=== PATIENT | female | born 1945 | race Caucasian/White ===

== ENCOUNTER 2017-02-15 19:09 | Inpatient (IN) | payer MEDICARE, OTHER ==
[~2017-02-15] VITALS: Ht 160 cm; Wt 81.6 kg
[2017-02-15 19:12] VITALS: BP 152/87
--- NOTE | 2017-02-15 21:05 | NUR ---
BIB WHEELCHAIR TO ER OF1
--- NOTE | 2017-02-15 21:50 | NUR ---
BIB WHEELCHAIR TO ER BED [address] SCAN
--- NOTE | 2017-02-15 21:55 | NUR ---
Patient being evaluated by physician at bedside.
--- NOTE | 2017-02-15 21:55 | NUR ---
71Y F BIB FAMILY FOR LT. EYEBROWN LACERATION X1 HR. S/P FALL, LT. FACE SIDE HIT THE FLOOR. HX. DM . PT STATED PAIN IS LOCALIZED AT LEFT LEG. PT DENIES N/V/D; SKIN IS PINK/WARM/DRY; AAOX4 ; LUNGS CLEAR BL; HR EVEN AND REGULAR; PT DENIES ANY FEVER, CP, SOB, OR COUGH AT THIS TIME; PATIENT STATES PAIN OF 10/10 AT THIS TIME; VSS; PATIENT POSITIONED FOR COMFORT; HOB ELEVATED; BEDRAILS UP X2; BED DOWN. ER MD MADE AWARE OF PT STATUS.
[2017-02-15 22:55] LABS: BASOPHILS % (AUTO) 0.4 % (0.0-2.0); EOSINOPHILS # (AUTO) 0.1 K/uL (0-0.4); EOSINOPHILS % (AUTO) 1.3 % (0.0-4.0); HEMATOCRIT 28.4 % (36-48); HEMOGLOBIN 9.3 g/dL (12.0-16.0); LYMPHOCYTES # (AUTO) 0.7 K/uL (2.5-16.5); LYMPHOCYTES % (AUTO) 7.2 % (20.5-51.1); MEAN CORPUSCULAR HEMOGLOBIN 30 pg (27-31); MEAN CORPUSCULAR HGB CONC 33 g/dL (33-37); MEAN CORPUSCULAR VOLUME 92 fL (80-94); MONOCYTES # (AUTO) 0.5 K/uL (0.8-1.0); MONOCYTES % (AUTO) 4.7 % (1.7-9.3); NEUTROPHILS # (AUTO) 8.4 K/uL (1.8-7.7); PLATELET COUNT (AUTO) 147 K/uL (140-450); RED BLOOD CELL COUNT(AUTO) 3.09 MIL/uL (4.20-5.40); RED CELL DISTRIBUTION WIDTH 12.9 % (11.6-13.7); WHITE BLOOD COUNT (AUTO) 9.7 K/uL (4.8-10.8)
[2017-02-15 23:09] LABS: ANION GAP 13.7 (8-16); CARBON DIOXIDE 22.5 mmol/L (21-32); CHLORIDE 108 mmol/L (98-107); CREATININE 1.2 mg/dL (0.6-1.3); GLUCOSE 272 mg/dL (74-106); POTASSIUM 4.2 mmol/L (3.5-5.1); SODIUM SERUM 140 mmol/L (136-145); UREA NITROGEN, BLOOD 44 mg/dL (7-18)
[2017-02-15 23:16] LABS: ALANINE AMINOTRANSFERASE 27 U/L (14-59); ALBUMIN 2.7 g/dL (3.4-5.0); ALKALINE PHOSPHATASE 116 U/L (46-116); ASPARTATE AMINOTRANSFERASE 25 U/L (15-37); TOTAL BILIRUBIN 0.5 mg/dL (0.0-1.0); TOTAL PROTEIN, SERUM 6.9 g/dL (6.4-8.2)
[2017-02-15] MEDS ORDERED: HYDROcodone/APAP 5/325 MG 1 TAB TAB PO ONE (23:20)
[2017-02-15 23:21] LABS: NEUTROPHILS % (AUTO) 86.4 % (42.2-75.2)
--- NOTE | 2017-02-16 00:27 | NUR ---
Patient will be admitted to care of DR TEJEDA. Admited to MS 108B. Will go to room MS 108B. Belongings list completed. Report to NATE.
[2017-02-16] MEDS ORDERED: ACETAMINOPHEN EXTRA STRENGTH 500 MG TAB PO PRN (00:35)
[2017-02-16] MEDS ORDERED: oxyCODONE/APAP 5/325 MG 1 TAB TAB PO PRN (00:35)
[2017-02-16] MEDS ORDERED: ONDANSETRON 4 MG/2 ML VIAL IVP PRN (00:40)
[2017-02-16] MEDS ORDERED: DEXTROSE 50% 50 ML SYR IVP PRN (00:40)
[2017-02-16 01:05] VITALS: BP 147/71
--- NOTE | 2017-02-16 02:07 | NUR ---
ADMITTED A 71 Y/O FEMALE FROM ER, VIA GURNEY, ACCOMPANIED BY 2 STAFF AND THE PATIENT'S SON. PT ADMITTED TO MED/SURG FOR LT FEMUR FRACTURE FROM S/P FALL. PT SPEAKS [place], ALERT BUT IS FORGETFUL. IV ACCESS TO LT HAND, GAUGE 20, INTACT AND PATENT WITH NO S/S OF INFILTRATION. SKIN ASSESSMENT DONE. LT FACIAL BRUISING, LT EYEBRON SUPERFICIAL LACERATION AND NOSE BRIDGE ABRASION NOTED. PER SON, THE ABRASION TO THE NOSEBRIDGE WAS FROM PT'S WEARING EYEGLASSES. NO PRESSURE ULCER NOTED AT THIS TIME. HANDLED GENTLY DURING CARE. PT DENIES PAIN AT THIS TIME. DISCUSSED PLAN OF CARE. PT AND SON VERBALIZED UNDERSTANDING. ALL BELONGINGS CHECKED. SON WILL BRING THEM HOME. ORIENTED PT TO CALL LIGHT, TV, LIGHTS, BATHROOM. FALL PRECAUTION AND BED ALARM IN PLACE. CALL LIGHT PLACED WITHIN EASY REACH. WILL CONTINUE TO MONITOR.
--- NOTE | 2017-02-16 02:10 | NUR ---
NOTED LT KNEE AND LT THIGH TENDERNESS AND EDEMA, NO BRUISING AT THIS TIME. HANDLED GENTLY DURING CARE. EDUCATED PT TO MINIMIZE MOBILIZATION OF AFFECTED LEG. PT VERBALIZED UNDERSTANDING.
--- NOTE | 2017-02-16 03:19 | NUR ---
PT STILL AWAKE AT THIS TIME, DENIES PAIN. LYING COMFORTABLY IN BED. LIANA (SON) VISITING. ALL QUESTIONS ANSWERED. UPDATED PATIENT'S PLAN OF CARE. HE VERBALIZED UNDERSTANDING AND APPRECIATION. WILL CONTINUE TO MONITOR.
--- NOTE | 2017-02-16 04:16 | NUR ---
PT SLEEPING AT THIS TIME. NO S/S OF RESPIRATORY DISTRESS. NO FACIAL GRIMACING OR MOANING INDICATING PAIN AT THIS TIME. WILL CONTINUE TO MONITOR. FALL PRECAUTION IN PLACE.
[2017-02-16] MEDS: INSULIN LISPRO SLIDING SCALE 100 UNITS/ML VIAL SUBQ PRN ×4 (06:38→21:02)
[2017-02-16] MEDS: BLOOD GLUCOSE MONITORING 1 DEV DEV FS SCH ×4 (06:39→20:59)
--- NOTE | 2017-02-16 07:16 | NUR ---
PT AAOX4, VERBALLY RESPONSIVE. DENIES PAIN. NO S/S OF RESPIRATORY DISTRESS AT THIS TIME. PT IN STABLE CONDITION. ENDORSED TO NEXT SHIFT FOR CONTINUITY OF CARE.
--- NOTE | 2017-02-16 07:17 | NUR ---
RECEIVED REPORT AT BEDSIDE FOR CONTINUITY OF CARE. PT IS AWAKE AND ALERT. INTRODUCED MYSELF AND UPDATED THE BOARD. PT IS NICARAGUAN SPEAKING, VERY LITTLE BURMESE. PT HAS FACIAL ABRASIONS AND BRUISES FROM S/P FALL. PT HAS A L FRACTURED FEMUR. DENIES PAIN. PT HAS EDEMA ON L LEG AND KNEE, OTHER RODRIGUEZ SKIN IS INTACT. PLAN FOR TODAY: CONSULT FROM SURGEON, POSSIBLE SURGERY. WILL CONTINUE TO MONITOR PT.
--- NOTE | 2017-02-16 07:48 | NUR ---
PT V/S WITHIN NORMAL RANGE. EATING BREAKFAST AT THIS TIME. NO COMPLAINTS. WILL CONTINUE TO MONITOR PT.
[2017-02-16 08:00] VITALS: BP 132/66
[2017-02-16] MEDS ORDERED: ENOXAPARIN 40 MG/0.4 ML SYR SUBQ SCH (09:00)
--- NOTE | 2017-02-16 10:04 | NUR ---
SPOKE WITH DR. QUIROGA REGARDING THE CARDIOLOGY PRE-OP CONSULT. STATED HE WILL SEE PT BEFORE SX. NEW ORDER GIVEN (TROPONIN X1).
[2017-02-16 10:27] LABS: INR 1.1 (0.8-1.2); PARTIAL THROMBOPLASTIN TIME 27.6 secs (22-35.6); PROTHROMBIN TIME 10.8 secs (10.8-13.4)
--- NOTE | 2017-02-16 11:05 | NUR ---
PT IS SLEEPING. NO SIGNS OF DISTRESS. WILL CONTINUE TO MONITOR PT.
--- NOTE | 2017-02-16 11:14 | NUR ---
DR. QUIROGA, COACH PROFESSIONAL ATHLETES, CAME TO CONSULT ON PT. Addendum: 02/16/17 at 1117 by Ysabel Lam RN ONCE PT IS CLEARED FOR SURGERY, SHE WILL HAVE IT ON MON AT 1000.
--- NOTE | 2017-02-16 11:20 | NUR ---
PATIENT HAS BEEN SCREENED AND CATEGORIZED MODERATE NUTRITION RISK. PATIENT WILL BE SEEN WITHIN 3-5 DAYS OF ADMISSION. 02/19/17 - 02/21/17 ANCELMO TOSCANO MBA, RD
--- NOTE | 2017-02-16 14:52 | NUR ---
P/T HERE FOR ORTEGA'S TRACTION AND THE TRAPEZE. STUDENT NURSE HERE TO ASSIST AND WATCH.
--- NOTE | 2017-02-16 15:00 | NUR ---
PT NOTES PT order noted for chapa's traction 10# LLE d/t L hip fx, and trapeze set up. Chapa's traction set up completed and tolerated, noted LLE slightly ER'd and flexed, educated nursing to f/u with traction for skin check and tolerance, patient with minimal c/o pain, unable to rate, no significant facial grimacing noted. Trapeze set up, double safety check for proper set up. Instructed patient/nursing on use with good return understanding. Patient scheduled for possible sx 02/18. [phone]
[2017-02-16 15:53] VITALS: BP 129/65
--- NOTE | 2017-02-16 17:33 | NUR ---
PT RESTING COMFORTABLY. SON AT BEDSIDE. PT IS TOLERATING THE TRACTION WELL. NO COMPLAINTS. WILL CONTINUE TO MONITOR PT.
--- NOTE | 2017-02-16 18:45 | NUR ---
PT DIDN'T URINATE ALL DAY. TRIED USING BEDPAN 2X BUT NO URINATION. SHE HAS TO GO BUT WHEN SHE SITS ON THE BEDPAN, NOTHING COMES OUT. PLANNING TO DO A BLADDER SCAN TO SEE IF SHE IS RETAINING URINE. WAITING FOR PT TO FINISH DINNER. PT SON AT BEDSIDE. IF PT IS RETAINING URINE, NEED TO CONTACT DR. ALEXANDER AND WILL NEED AN ORDER FOR MIMS CATH.
--- NOTE | 2017-02-16 19:23 | NUR ---
ENDORSED PT TO THE OPTICIAN MANAGER NURSE AT BEDSIDE FOR CONTINUITY OF CARE. PT IS STILL EATING DINNER. PT IN STABLE CONDITION.
--- NOTE | 2017-02-16 19:30 | NUR ---
PATIENT IS CURRENTLY AWAKE ALERT ORIENTED RESTING IN BED SPEAKS ALBANIAN.PATIENT HAS BUCKS TRACTION TO LT LEG.PATIENT DENIES PAIN AT THIS TIME. ENDORSED BY RN IVETTE ENDORSED THAT PATIENT HASN'T VOIDED YET PATIENT WAS OFFERED THE BED GOLDEN EARLIER BUT PATIENT DIDN'T VOID.WILL DO BLADDER SCAN TO CHECK FOR URINE RETENTION.PATIENT DENIES PAIN AT THIS TIME.CALL LIGHT WITHIN REACH FALL AND SAFETY PRECAUTIONS IMPLEMENTED.
--- NOTE | 2017-02-16 19:35 | NUR ---
Patient's Plan of Care was discussed and reviewed with AUDITOR IN CHARGE: MADISON MOSQUEDA.
[2017-02-16 20:00] VITALS: BP 149/67
--- NOTE | 2017-02-16 20:02 | NUR ---
PATIENT BLADDER WAS SCANNED WITH BLADDER SCANNER AND APPROX 179ML SHOWING THAT SHE IS RETAINING SOME URINE I ATTEMPTED SEVERAL TIMES TO SCAN HER BLADDER, BUT SHOWS DIFFERENT AMOUNTS OF RETAINED URINE IN HER BLADDER. MD NIKHIL MARY WAS CALLED AND MD JENSEN IS COMPUTING SERVICES DIRECTOR SO WILL WAIT FOR MD TO CALL BACK TO INFORM HIM.
--- NOTE | 2017-02-16 20:18 | NUR ---
MD DIANA CALLED BACK AND INFORMED HIM THAT PATIENT HASN'T VOIDED AND HE GAVE NEW ORDERS. SAID TO ORDER BMP STAT AND AND TO INSERT MIMS CATHETER. PATIENT AND FAMILY WILL BE INFORMED.I CALLED LAB AND INFORMED NAHUM THAT PATIENT NEEDS STAT LAB DRAW.
[2017-02-16 21:01] LABS: ANION GAP 12.2 (8-16); CALCIUM 7.1 mg/dL (8.5-10.1); CARBON DIOXIDE 22.3 mmol/L (21-32); CHLORIDE 103 mmol/L (98-107); CREATININE 1.8 mg/dL (0.6-1.3); GLUCOSE 247 mg/dL (74-106); POTASSIUM 4.5 mmol/L (3.5-5.1); SODIUM SERUM 133 mmol/L (136-145); UREA NITROGEN, BLOOD 56 mg/dL (7-18)
[2017-02-16] MEDS: MORPHINE SULFATE 2 MG/ML SYR IVP PRN (23:36)
[2017-02-17] VITALS: BP 127/65
--- NOTE | 2017-02-17 00:10 | NUR ---
PATIENT IS CURRENTLY SLEEPING WELL IN BED AT THIS TIME. NEEDS MET CONTINUES TO BE MONITORED.CALL LIGHT WITHIN REACH.
--- NOTE | 2017-02-17 03:10 | NUR ---
PATIENT COMFORTABLE RESTING IN BED NO COMPLAINS OF PAIN OR DISCOMFORT NOTED.WILL CONTINUE TO MONITOR.
[2017-02-17 05:08] VITALS: BP 119/64
[2017-02-17 06:14] LABS: BASOPHILS % (AUTO) 0.4 % (0.0-2.0); EOSINOPHILS # (AUTO) 0.3 K/uL (0-0.4); EOSINOPHILS % (AUTO) 3.4 % (0.0-4.0); HEMATOCRIT 22.1 % (36-48); HEMOGLOBIN 7.4 g/dL (12.0-16.0); LYMPHOCYTES # (AUTO) 0.8 K/uL (2.5-16.5); LYMPHOCYTES % (AUTO) 9.8 % (20.5-51.1); MEAN CORPUSCULAR HEMOGLOBIN 31 pg (27-31); MEAN CORPUSCULAR HGB CONC 34 g/dL (33-37); MEAN CORPUSCULAR VOLUME 91 fL (80-94); MONOCYTES # (AUTO) 0.5 K/uL (0.8-1.0); MONOCYTES % (AUTO) 6.1 % (1.7-9.3); NEUTROPHILS # (AUTO) 6.5 K/uL (1.8-7.7); NEUTROPHILS % (AUTO) 80.3 % (42.2-75.2); PLATELET COUNT (AUTO) 111 K/uL (140-450); RED BLOOD CELL COUNT(AUTO) 2.43 MIL/uL (4.20-5.40); WHITE BLOOD COUNT (AUTO) 8.1 K/uL (4.8-10.8)
--- NOTE | 2017-02-17 06:30 | NUR ---
PATIENT KEPT CLEAN AND DRY MIMS CATHETER TO GRAVITY.NEEDS MET.NO PAIN OR DISCOMFORT NOTED.
[2017-02-17 07:15] LABS: ANION GAP 14.8 (8-16); CALCIUM 7.5 mg/dL (8.5-10.1); CARBON DIOXIDE 21.5 mmol/L (21-32); CHLORIDE 102 mmol/L (98-107); CREATININE 1.5 mg/dL (0.6-1.3); GLUCOSE 186 mg/dL (74-106); POTASSIUM 4.3 mmol/L (3.5-5.1); SODIUM SERUM 134 mmol/L (136-145); UREA NITROGEN, BLOOD 54 mg/dL (7-18)
--- NOTE | 2017-02-17 07:17 | NUR ---
REPORT ENDORSE TO GIOVANNI GRAY SHE WILL RESUME CARE OF THE PATIENT.
--- NOTE | 2017-02-17 07:18 | NUR ---
RECEIVED REPORT FROM THE CREDIT RISK ANALYTICS MANAGER NURSE AT BEDSIDE FOR CONTINUITY OF CARE. PT IS AWAKE AND ALERT. INTRODUCED MYSELF AND UPDATED THE BOARD. FAMILY AT BEDSIDE. NOTED THE IV ON THE L HAND 20G SL. V/S WITHIN NORMAL RANGE. DENIES PAIN. SKIN IS INTACT. BRUISING ON L SIDE OF FACE. EDEMA ON L KNEE AND THIGH. MIMS CATH IN PLACE. ORTEGA TRACTION WITH 10LB OF WEIGHT FREE HANGING. PT TOLERATING WELL. PLAN: CONTINUE TO KEEP PT COMFORTABLE. DR. AWAN TO VISIT AND GET CONSENT FOR SURGERY ON Saturday.
[2017-02-17] MEDS: BLOOD GLUCOSE MONITORING 1 DEV DEV FS SCH ×4 (07:30→22:38)
--- NOTE | 2017-02-17 08:11 | NUR ---
PT AFTER BEING REPOSITIONED, O2 SAT DROPPED TO 86%. APPLIED NC O2 AT 4L. NOW SETTING AT 97% WILL BRING DOWN TO 2L. PT TOLERATED WELL. CHECK GLUCOSE LEVEL SINCE IT WAS MISSED AT 0730- 177. WILL HOLD INSULIN. PT REFUSING BREAKFAST TRAY.
[2017-02-17] MEDS: METOPROLOL 25 MG TAB PO SCH (08:33)
--- NOTE | 2017-02-17 11:30 | NUR ---
PT WANTED TO USE THE BEDPAN. FORGOT SHE HAD THE MIMS CATH. REMINDED PT. ASKED IT SHE NEEDED TO HAVE A BM. PT STATED NO. WILL CONTINUE TO MONITOR PT.
[2017-02-17] MEDS: INSULIN LISPRO SLIDING SCALE 100 UNITS/ML VIAL SUBQ PRN ×3 (12:13→22:43)
--- NOTE | 2017-02-17 13:50 | NUR ---
PT NEEDED TO BE PULLED UP IN BED. SURVEILLANCE INVESTIGATOR AND I HELPED CLEAN AND REPOSITION HER. PT TOLERATED WELL. WILL CONTINUE TO MONITOR PT.
--- NOTE | 2017-02-17 15:43 | NUR ---
SLEEPING SOUNDLY. SON AT BEDSIDE. NO SIGNS OF DISTRESS. WILL CONTINUE TO MONITOR PT.
[2017-02-17 16:00] VITALS: BP 159/63
--- NOTE | 2017-02-17 18:30 | NUR ---
PT EATING DINNER. SONS AT BEDSIDE. NO SIGNS OF DISTRESS. NO COMPLAINTS AT THIS TIME. WILL CONTINUE TO MONITOR PT.
--- NOTE | 2017-02-17 19:15 | NUR ---
ENDORSED PT TO THE DIRECTOR OF SPORTS PERFORMANCE NURSE AT BEDSIDE FOR CONTINUITY OF CARE. PT IS IN STABLE CONDITION. PT IS SITTING ON THE BEDPAN. I EXPLAINED TO HER THAT SHE HAS A MIMS CATH BUT SHE INSISTS.
--- NOTE | 2017-02-17 19:20 | NUR ---
PATIENT IS CURRENTLY AWAKE ALERT ORIENTED SETSWANA SPEAKING SHE IS LAYING IN BED DENIES PAIN AT THIS TIME. CONTINUES TO HAVE BUCKS TRACTION TO LT LEG.MIMS CATHETER TO GRAVITY DRAINING YELLOW COLOR URINE.FAMILY CURRENTLY AT BEDSIDE WITH THE PATIENT.
[2017-02-17 20:00] VITALS: BP 123/62
--- NOTE | 2017-02-17 20:08 | NUR ---
Patient's Plan of Care was discussed and reviewed with WHARF LABOURER: KIT.
--- NOTE | 2017-02-17 22:35 | NUR ---
PATIENT IS CURRENTLY RESTING IN BED WAS PULLED UP IN BED WATER AND SNACK OFFERED TO THE PATIENT.PATIENT DOING WELL.NEEDS MET CALL LIGHT WITHIN REACH.
[2017-02-17] MEDS: MORPHINE SULFATE 2 MG/ML SYR IVP PRN (23:02)
--- NOTE | 2017-02-17 23:16 | NUR ---
PATIENT WAS CLEANED BY LUPILLO GALINDO AND LUPILLO ALBERT AND WHEN THEY LIFTED THE PATIENT ABDOMINAL FOLD SO THEY CAN CLEAN HER BETTER AND THEN LUPILLO ALBERT REPORTED THAT SHE NOTICED SOME REDNESS AND A LITTLE EXCORIATION.I WENT TO CHECK ON THE PATIENT AND PATIENT DOES HAVE UNDERNEATH HER ABDOMEN FOLD SOME EXCORIATION. I TOOK PICTURES BUT THE CAMERA ISN'T TAKING QUALITY PICTURES THEY CAME OUT ORANGE IN COLOR.BUT SHE HAS REDNESS UNDERNEATH THE ABD FOLD AND TO THE RT AND LT SIDE UNDERNEATH THE ABDOMEN FOLD THE AREA LOOKS RED AND LOOKS IRRITATED LIKE THERE WAS FRICTION WITH THE SKIN.SITE WAS CLEANED AND PATTED AND A PILLOW COVER PLACED UNDER THE ABDOMEN FOLD TO PREVENT FURTHER FRICTION FOR NOW.
--- NOTE | 2017-02-17 23:58 | NUR ---
ANESTHESIOLOGIST BRIGETTE HILLS CALLED AND WANTED INFORMATION ON THE PATIENT.HE WAS UPDATED WITH PATIENT'S CURRENT CONDITION AND IS ALSO AWARE OF THE PATIENTS LABS. GAVE TELEPHONE ORDERS WILL ORDER AND CARRY THEM OUT.
[2017-02-18] VITALS (7 sets, daily range): BP systolic 115–158; BP diastolic 52–79
--- NOTE | 2017-02-18 00:15 | NUR ---
PATIENT IS CURRENTLY RESTING IN BED AND CONTINUES TO BE PULLED UP IN BED.NEEDS CONTINUE TO BE MET FREQUENT VISUAL CHECKS WILL BE DONE.CALL LIGHT WITHIN REACH WILL CONTINUE TO MONITOR.
--- NOTE | 2017-02-18 03:05 | NUR ---
PATIENT WAS GIVEN THE BEDPAN WHILE MAKING ROUNDS PATIENT STATES,"I FEEL LIKE GOING POOP." I GAVE THE PATIENT A BEDPAN AND PATIENT TRIED TO USE IT BUT WAS UNABLE TO GO PUPU. NO PAIN OR DISCOMFORT NOTED NEEDS MET WILL CONTINUE TO MONITOR.CALL LIGHT WITHIN REACH.
--- NOTE | 2017-02-18 04:45 | NUR ---
PATIENT WAS CLEANED AND TURNED AND REPOSITIONED WITH THE ASSISTANCE OF LUPILLO ALBERT AND LUPILLO GALINDO.PATIENT COMFORTABLE.NO PAIN OR DISCOMFORT NOTED.PATIENT WENT BACK TO SLEEP.CALL LIGHT WITHIN REACH.
[2017-02-18 05:05] LABS: BASOPHILS % (AUTO) 0.5 % (0.0-2.0); EOSINOPHILS # (AUTO) 0.1 K/uL (0-0.4); EOSINOPHILS % (AUTO) 1.5 % (0.0-4.0); LYMPHOCYTES # (AUTO) 0.7 K/uL (2.5-16.5); LYMPHOCYTES % (AUTO) 10.7 % (20.5-51.1); MEAN CORPUSCULAR HEMOGLOBIN 30 pg (27-31); MEAN CORPUSCULAR HGB CONC 33 g/dL (33-37); MEAN CORPUSCULAR VOLUME 92 fL (80-94); MONOCYTES # (AUTO) 0.7 K/uL (0.8-1.0); MONOCYTES % (AUTO) 10.8 % (1.7-9.3); NEUTROPHILS # (AUTO) 4.7 K/uL (1.8-7.7); NEUTROPHILS % (AUTO) 76.5 % (42.2-75.2); PLATELET COUNT (AUTO) 107 K/uL (140-450); RED BLOOD CELL COUNT(AUTO) 2.07 MIL/uL (4.20-5.40); RED CELL DISTRIBUTION WIDTH 13.1 % (11.6-13.7); WHITE BLOOD COUNT (AUTO) 6.2 K/uL (4.8-10.8)
[2017-02-18 05:13] LABS: ANION GAP 9.8 (8-16); CALCIUM 7.4 mg/dL (8.5-10.1); CARBON DIOXIDE 24.2 mmol/L (21-32); CHLORIDE 105 mmol/L (98-107); CREATININE 0.9 mg/dL (0.6-1.3); GLUCOSE 167 mg/dL (74-106); SODIUM SERUM 135 mmol/L (136-145); UREA NITROGEN, BLOOD 41 mg/dL (7-18)
[2017-02-18 05:24] LABS: HEMOGLOBIN 6.2 g/dL (12.0-16.0)
--- NOTE | 2017-02-18 05:43 | NUR ---
MD CORONA WAS CALLED AND INFORMED OF PATIENT CURRENT CONDITION AND CRITICAL LAB VALUES MD AWARE. WILL CALL MD AWAN WELL.
--- NOTE | 2017-02-18 05:44 | NUR ---
I CALLED MD LV MARY AND WAS TRANSFERRED TO HIM RIGHT AWAY SO I SPOKE WITH HIM AND I INFORMED HIM OF PATIENT'S LABS HGB AND HCT BEING CRITICALLY LOW AND I ALSO ASKED HIM IF HE WOULD LIKE THE PATIENT TO BE ON IVF BECAUSE PATIENT IS NPO AND HAS NO CURRENT ORDER FOR FLUIDS. THEN I INFORMED HIM THAT PATIENT'S O2SAT WAS LOW 88% I ASKED HIM IF ITS OK FOR THE PATIENT TO GET SOME OXYGEN.MD GAVE ORDERS.WILL CARRY THEM OUT.
--- NOTE | 2017-02-18 06:06 | NUR ---
FAMILY LUIS MANUEL MG (SON) WAS CALLED AND INFORMED THAT PATIENT'S PROCEDURE WILL BE TODAY AROUND 10AM PER MD AWAN, I ALSO INFORMED SON THAT PATIENT WILL NEED A CONSENT FOR BLOOD TRANSFUSION AND I INFORMED SON THAT THE SURGERY IS CURRENTLY SCHEDULED FOR 10AM.MIKY ISSA SAID HE WILL COME THIS MORNING. MIKY ISSA GAVE TELEPHONE CONSENT FOR HIS MOTHER'S PROCEDURE OVER THE PHONE AND ALSO GAVE TELEPHONE CONSENT SO WE CAN TRANSFUSE TWO UNITS OF PRBC'S WITNESSED BY LIBRARY SERIALS ASSISTANT NURSE NACHO.
[2017-02-18] MEDS: NACL 0.45% 1,000 ML IV SCH ×2 (06:13→19:10)
[2017-02-18 06:23] LABS: BILIRUBIN,URINE NEGATIVE (NEGATIVE); BLOOD, URINE 1+ (NEGATIVE); COLOR,URINE YELLOW (YELLOW); LEUKOCYTE ESTERASE ,URINE 1+ (NEGATIVE); NITRITE, URINE POSITIVE (NEGATIVE); PH,URINE 5.5 (5.0-9.0); PROTEIN,URINE 2+ (NEGATIVE); UGLUCOSE NEGATIVE (NEGATIVE); UROBILINOGEN,URINE 0.2 EU/dL (0.2 - 1)
[2017-02-18] MEDS: BLOOD GLUCOSE MONITORING 1 DEV DEV FS SCH ×6 (06:27→21:05)
--- NOTE | 2017-02-18 06:47 | NUR ---
PATIENT CURRENTLY RESTING IN BED AT THIS TIME NEEDS MET.CONTINUES TO BE NPO,IVF INFUSING WELL WILL CONTINUE TO MONITOR.
[2017-02-18] MEDS: INSULIN LISPRO SLIDING SCALE 100 UNITS/ML VIAL SUBQ PRN ×3 (06:59→21:07)
--- NOTE | 2017-02-18 07:30 | NUR ---
PATIENT ENDORSED AT BEDSIDE TO GIOVANNI GEIGER ENDORSED TO FOLLOW UP WITH THE ECHO RESULTS AND TO UPDATE THE SURGICAL CHECKLIST.SHE WILL RESUME CARE OF THE PATIENT.
--- NOTE | 2017-02-18 07:31 | NUR ---
REPORT RECEIVED FROM PATIENT ADMITTING CLERK, CARE ASSUMED AT THIS TIME, PT SLEEPING QUIETLY, AROUSES EASILY BY VOICE, RESP EVEN UNLABORED, INITIAL ASSESSMENT DONE, PT DENIES PAIN OR DISCOMFORT, PLAN OF CARE DISCUSSED, SON AT BEDSIDE, BLOOD BANK GETTING PRBC READY, CROSSMATCH ORDERED PER BLOOD BANK, DENIES ANY IMMEDIATE NEEDS, CALL MORALES WITHIN REACH, WILL CONTINUE TO TO MONITOR.
[2017-02-18 08:07] LABS: APPEARANCE,URINE HAZY (CLEAR)
[2017-02-18 08:13] LABS: BACTERIA,URINE 1+ /HPF (None Seen)
[2017-02-18 08:15] LABS: SQUAMOUS EPITHELIAL CELL,UR 0-3 (FEW) /LPF (0-3 (FEW))
[2017-02-18] MEDS: METOPROLOL 25 MG TAB PO SCH (09:00)
--- NOTE | 2017-02-18 09:12 | NUR ---
PRBC BLOOD TRANSFUSION CONSENT TURNED IN TO BLOOD BANK, VERIFIED BY 2 NURSES WITH RN YASMIN, PRE TRANSFUSION VITALS STABLE PER DOCUMENTATION, TRANSFUSION STARTED AT THIS TIME. WILL MONITOR PT CLOSELY.
[2017-02-18] MEDS ORDERED: BACITRACIN 50000 UNITS/1 VIAL ONE (09:37)
[2017-02-18] MEDS ORDERED: BUPIVACAINE-MPF 0.25% 30 ML VIAL INJ ONE (09:37)
--- NOTE | 2017-02-18 09:41 | NUR ---
PT TAKEN TO OR BY GIOVANNI BURKS, BLOOD TRANSFUSION ONGOING, NO S/S REACTIONS NOTED SO FAR.
[2017-02-18] MEDS ORDERED: ePHEDrine 50 MG/ML VIAL ONE (09:49)
[2017-02-18] MEDS ORDERED: BUPIVACAINE-MPF 0.75% 10 ML VIAL INJ ONE (09:49)
[2017-02-18] MEDS ORDERED: PROPOFOL 200 MG/20 ML VIAL IV ONE (09:49)
[2017-02-18] MEDS ORDERED: ceFAZolin 1,000 MG VIAL ONE (09:55)
[2017-02-18] MEDS ORDERED: fentaNYL 0.05 MG/ML VIAL ONE (10:03)
[2017-02-18] MEDS ORDERED: ONDANSETRON 4 MG/2 ML VIAL IVP PRN (10:55)
--- NOTE | 2017-02-18 13:05 | NUR ---
PT RETURNED FROM OR, VSS, RESP EVEN UNLABORED, O2 SAT LOW 80S ON ROOM AIR, PT PLACED ON 4L NC O2, LEFT LEG IN KNEE IMMOBILIZER, CHEL WRAP NOTED UNDERNEATH, GOOD CMS DISTALLY, DRESSING TO LEFT UPPER THIGH, CLEAN DRY INTACT, SON AT BEDSIDE, CALL MORALES WTIHIN REACH, SIDE RAILS UP, WILL CONTINUE TO MONITOR
[2017-02-18] MEDS: MORPHINE SULFATE 2 MG/ML SYR IVP PRN (14:18)
--- NOTE | 2017-02-18 14:41 | NUR ---
PT MOANING CRYING, STATES 2MG MORPHINE GIVEN EARLIER FOR PAIN DID NOT WORK, DR AWAN CALLED, TELEPHONE ORDER RECEIVED FOR 5MG MORPHINE, WILL MEDICATE
[2017-02-18] MEDS ORDERED: MORPHINE SULFATE 5 MG/ML VIAL IVP PRN (14:45)
--- NOTE | 2017-02-18 14:46 | NUR ---
CM NOTE INITIAL REVIEW FAXED TO [facility] (FAX #[phone], ATTN: JADEN #[phone] [id number]) AND [facility] (FAX# [phone], ATTN: SHANELL #[phone])
[2017-02-18] MEDS ORDERED: MORPHINE SULFATE 10 MG/ML SYR IVP PRN (15:00)
--- NOTE | 2017-02-18 15:20 | NUR ---
PT RESTING WITH EYES CLOSED, APPEARS MUCH MORE COMFORTABLE, SON AT BEDSIDE, WILL CONTINUE TO MONITOR
[2017-02-18] MEDS: HYDROcodone/APAP 7.5/325 MG 1 TAB PO PRN (16:28)
--- NOTE | 2017-02-18 18:02 | NUR ---
PT REFUSES TO ADVANCE DIET, MAYLIN CLEAR LIQ WELL, DENIES N/V, POSITION CHANGED, MIMS INPLACE, DRAINING WELL, WILL CONTINUET O MONITOR.
[2017-02-18 18:20] LABS: HEMOGLOBIN 7.8 g/dL (12.0-16.0)
--- NOTE | 2017-02-18 18:57 | NUR ---
CHECKED ON ALERT, KOREAN SPEAKING PT WITH FAMILY AT BEDSIDE. NO DISTRESS/SOB/WHEEZING NOTED AT THIS TIME. PT FOUND ON 4L/M NASAL CANNULA, SATURATION 98%. FIO2 DECREASED TO 3 L/M. WILL RETURN TO CHECK SATURATION SHORTLY. WILL CONTINUE TO MONITOR.
--- NOTE | 2017-02-18 19:30 | NUR ---
REPORT GIVEN TO RAÚL RN TRIAGE NURSE, PT IN STABLE CONDITION.
--- NOTE | 2017-02-18 19:31 | NUR ---
RECD. RESTING IN BED, AWAKE, A/OX3, RESPIRATION EVEN AND UNLABORED. ABRASION NOTED ON THE NOSE AND CHEEKS AND LEFT ARM. ON 02 AT 2 LITERS VIA N/C. IV OF NS AT 75 ML/HR INFUSING, RIGHT WRIST, SALINE LOCK AT THE LEFT HAND G 20, PATENT AND INTACT. F/C PATENT DRAINING CLEAR, YELLOW ORANGE URINE. WITH LEFT KNEE IMMOBILIZER, TOES WITH GOOD CAPILLARY REFILL, FREE MOVEMENT. RIGHT LEG ON SEQUENTIAL. SAFETY MEASURES ENFORCED. PLAN OF CARE FOR THE SHIFT DISCUSSED WITH PATIENT AND SON AT BEDSIDE. VERBALIZED UNDERSTANDING. PATIENT DOES NOT WANT TO BE TOUCHED. TENDER TO TOUCH BUT STATED NO PAIN AT THIS TIME 0/10.
--- NOTE | 2017-02-18 20:00 | NUR ---
Patient's Plan of Care was discussed and reviewed with CARRIAGE SETTER: EDWIN
--- NOTE | 2017-02-18 21:30 | NUR ---
STILL AWAKE, RESTING IN BED. DINNER TRAY STILL AT THE BEDSIDE. JUST ATE GELATIN FOR NIGHT SNACK, REFUSED THE PREPARED SNACK.
[2017-02-19] VITALS (10 sets, daily range): BP systolic 110–157; BP diastolic 54–82
--- NOTE | 2017-02-19 | NUR ---
SLEEPING COMFORTABLY IN BED.
[2017-02-19] MEDS: HYDROcodone/APAP 7.5/325 MG 1 TAB PO PRN ×2 (03:51→19:52)
[2017-02-19] MEDS: BLOOD GLUCOSE MONITORING 1 DEV DEV FS SCH ×4 (06:36→20:48)
[2017-02-19] MEDS: INSULIN LISPRO SLIDING SCALE 100 UNITS/ML VIAL SUBQ PRN ×4 (06:37→20:49)
--- NOTE | 2017-02-19 06:51 | NUR ---
DR. AWAN CAME, CHECKED PATIENT. ORDERED PACKED CELLS FOR TRANSFUSION.
[2017-02-19 07:11] LABS: HEMATOCRIT 21.2 % (36-48)
--- NOTE | 2017-02-19 07:20 | NUR ---
CONDITION REMAIN STABLE. ENDORSED TO GIOVANNI ALTAMIRANO FOR CONTINUITY OF CARE.
--- NOTE | 2017-02-19 07:25 | NUR ---
RECEIVED PATIENT REPORT AT BEDSIDE FROM NIGHT NURSE. PATIENT IS AAOX3 AND SHOWS NO S/S OF DISTRESS ON O2 2L VIA NC. PATIENT DENIES PAIN AT THIS TIME. DRESSING NOTED ON THE LEFT UPPER THIGH. IV ON THE R H WITH IVF'S INFUSING WELL AND L H SL. PATIENT WAS EXPLAINED POC FOR TODAY AND VERBALIZED UNDERSTANDING HOWEVER SHE NEEDS CONSTANT REINFORCEMENT. PATIENT EDUCATED ON USING THE CALL LIGHT WHEN ASSISTANCE IS NEEDED. THE BED IS LOWERED WITH CALL LIGHT WITHIN REACH. WILL CONTINUE TO MONITOR.
--- NOTE | 2017-02-19 08:24 | NUR ---
RECEIVED PRBC'S AND WILL BEGIN BLOOD TRANSFUSION PER PROTOCOL. PATIENT V/S ARE NOTED AND CHARTED. PATIENT DENIES PAIN AND SOB.
[2017-02-19] MEDS: NACL 0.45% 1,000 ML IV SCH ×3 (08:30→21:50)
--- NOTE | 2017-02-19 08:30 | NUR ---
PHYSICAL THERAPY ARE IN ROOM AND TRANSFERRING PATIENT ONTO BEDSIDE CHAIR. PATIENT WAS ASSISTED BY TWO PERSON TRANSFER ONTO CHAIR. PATIENT TOLERATED ACTIVITY WELL. PATIENT DENIES PAIN AND SOB. V/S NOTED AND CHARTED. BLOOD TRANSFUSION IS BEING SET UP.
--- NOTE | 2017-02-19 08:33 | NUR ---
PATIENT WAS NOT GIVEN SCHEDULED MEDICATIONS DUE TO DECREASED BLOOD PRESSURE 119/59 AND HR 101 AND LOW PLATELET COUNT OF 107. PATIENT DENIES SOB AND PAIN. WILL CONTINUE TO MONITOR.
--- NOTE | 2017-02-19 08:50 | NUR ---
PRBC'S WAS VERIFIED BY TWO RN'S. WILL START TO ADMINISTER 1 BAG OF PRBC.
--- NOTE | 2017-02-19 08:52 | NUR ---
BLOOD TRANSFUSION HAS BEGUN. WILL ADMINISTER 1 PRBC'S. WILL ASSESS V/S AFTER THE FIRST 15 MIN, 30 MIN, 1 HR AND EVERY HOUR UNTIL BLOOD TRANSFUSION HAS FINISHED WITHIN THE NEXT FOUR HOURS. V/S WILL BE CHARTED AND ASSESSED AND MD WILL BE NOTIFIED OF ANY ABNORMAL V/S. WILL CONTINUE TO MONITOR.
[2017-02-19] MEDS: METOPROLOL 25 MG TAB PO SCH (09:00)
--- NOTE | 2017-02-19 09:07 | NUR ---
PATIENTS V/S ARE CHARTED. SHE IS SITTING UP IN CHAIR. PATIENT DENIES PAIN, SOB, ITCHINESS, SORE BACK, AND DIFFICULTY BREATHING. PATIENT IS AFEBRILE. WILL CONTINUE TO MONITOR.
--- NOTE | 2017-02-19 09:22 | NUR ---
PATIENT IS STILL AT BEDSIDE SITTING UP IN CHAIR. PATIENT DENIES SOB, PAIN, SORE BACK, DIFFICULTY BREATHING, AND IS AFEBRILE. V/S WERE CHARTED. BLOOD TRANSFUSION IS INFUSING WELL ON THE L H. WILL CONTINUE TO MONITOR.
--- NOTE | 2017-02-19 10:22 | NUR ---
PATIENT IS NOW IN A WOUND CARE BED AND WITH FEET ELEVATED BY PILLOWS. PATIENT DENIES SOB, PAIN, SORE BACK, DIFFICULTY BREATHING, AND IS AFEBRILE. V/S WERE CHARTED. BLOOD TRANSFUSION IS INFUSING WELL ON THE L H. WILL CONTINUE TO MONITOR.
--- NOTE | 2017-02-19 11:22 | NUR ---
PATIENT IS IN BED AND SHOWS NO S/S OF DISTRESS ON 2L O2 VIA NC. PATIENT DENIES SOB, PAIN, SORE BACK, DIFFICULTY BREATHING, AND IS AFEBRILE. V/S WERE CHARTED. BLOOD TRANSFUSION IS INFUSING WELL ON THE L H. WILL CONTINUE TO MONITOR.
--- NOTE | 2017-02-19 11:26 | NUR ---
FAXED CONCURRENT REVIEW TO [facility] [phone] PHONE [phone] FAXED CONCURRENT REVIEW TO [facility] [phone] PHONE LAURA [phone] LAURA FROM [facility] CALLED E[facility]ER AND ASKED FOR REVIEWS TO BE FAXED TO HER DIRECT FAX ABOVE.
--- NOTE | 2017-02-19 12:22 | NUR ---
PATIENT IS IN BED AND SHOWS NO S/S OF DISTRESS ON 2L O2 VIA NC. PATIENT IS EATING LUNCH AND TOLERATING FOOD WELL. PATIENT DENIES SOB, PAIN, SORE BACK, DIFFICULTY BREATHING, AND IS AFEBRILE. V/S WERE CHARTED. BLOOD TRANSFUSION IS INFUSING WELL ON THE L H. WILL CONTINUE TO MONITOR.
--- NOTE | 2017-02-19 12:52 | NUR ---
PATIENT IS IN BED AND SHOWS NO S/S OF DISTRESS ON 2L O2 VIA NC. PATIENT DENIES SOB, PAIN, SORE BACK, DIFFICULTY BREATHING, AND IS AFEBRILE. V/S WERE CHARTED. BLOOD TRANSFUSION FINISHED. WILL CONTINUE TO MONITOR.
--- NOTE | 2017-02-19 14:44 | NUR ---
SS NOTE: PER LAURA FROM [facility] ([phone]), PT CAN GO TO [facility] OR [facility] FOR PHYSICAL THERAPY UPON DISCHARGE.
--- NOTE | 2017-02-19 14:50 | NUR ---
PATIENT HAS SON AT BEDSIDE TALKING AND SHOWING NO S/S OF DISTRESS ON 2L O2 VIA NC. PATIENT DENIES PAIN. MIMS CATHETER HAS DENISSE URINE. THE BED IS LOWERED WITH CALL LIGHT WITHIN REACH. SON'S QUESTIONS WERE ANSWERED REGARDING PATIENT'S POC FOR TODAY. PATIENT'S SON VERBALIZED UNDERSTANDING OF POC. WILL CONTINUE TO MONITOR.
--- NOTE | 2017-02-19 17:00 | NUR ---
PATIENT SHOWS NO S/S OF DISTRESS ON 2L O2 VIA NC. PATIENT HAS INTER DRY CLOTH IN ABD FOLDS AND WAS CHANGED TO NEW ONE. PATIENT HAS A NOTED OPEN WOUND LOCATED ON THE R LOWER ABD. WILL DOCUMENT AND TAKE PICTURE.
--- NOTE | 2017-02-19 19:05 | NUR ---
PATIENT IS AAOX3 AND SHOWS NO S/S OF DISTRESS ON 2L O2 VIA NC. SON DEISY IS AT BEDSIDE. PATIENT WAS REPOSITIONED AND TOLERATED ACTIVITY WELL. PATIENT DENIES PAIN. IVF'S INFUSING ON R H AND L H IS SALINE LOCK. THE BED IS LOWERED WITH CALL LIGHT WITHIN REACH. PATIENT REPORT WAS GIVEN AT BEDSIDE TO NIGHT NURSE. PATIENT ENDORSED IN STABLE CONDITION.
--- NOTE | 2017-02-19 19:06 | NUR ---
RECD. RESTING IN BED, AWAKE, A/OX3, RESPIRATION EVEN AND UNLABORED. ON 02 AT 2 LITERS VIA N/C. INCISION IN THE LEFT FEMUR AREA COVERED WITH DRESSING, DRY AND INTACT, WITH KNEE IMMOBILIZER ON LEFT LEG, TOES WITH GOOD CAPILLARY REFILL, + MOVEMENTS. ELEVATED LEFT LEG ON A PILLOW. F/C PATENT DRAINING CLEAR ORANGE URINE. DENIES PAIN 0/10. PLAN OF CARE DISCUSSED WITH PATIENT AND SON, VERBALIZED UNDERSTANDING.
--- NOTE | 2017-02-19 20:00 | NUR ---
Patient's Plan of Care was discussed and reviewed with STONEMASON APPRENTICE: RAÚL PINEDA
--- NOTE | 2017-02-19 21:10 | NUR ---
INFORMED DONTAE RODRIGUEZ PATIENT NEEDS BILATERAL HEEL PROTECTORS PER RECOMMENDATION OF WOUND CARE NURSE ENDORSED BY AM NURSE. INQUIRED IF WE CAN GIVE HEPARIN SUB Q EVEN IF THE PLATELET IS LOW, 107. HOLD FOR NOW AND LET MD TOMORROW DECIDE IF WE CAN GIVE. CHARGE NURSE FAIRY AWARE.
--- NOTE | 2017-02-19 22:00 | NUR ---
SPONGE BATH GIVEN WITH LUPILLO MAYER. REPOSITIONED IN BED WITH PILLOWS FOR COMFORT. MIKY MG CAME AND HELP. PATIENT MORE RELAXED AFTER SPONGE BATH.
--- NOTE | 2017-02-19 23:00 | NUR ---
APPLIED HEEL PROTECTORS.
[2017-02-20] VITALS: BP 141/72
--- NOTE | 2017-02-20 | NUR ---
SLEEPING COMFORTABLY IN BED.
--- NOTE | 2017-02-20 01:25 | NUR ---
REFUSED NICOTINE PATCH. ATE SNACK AND WENT BACK TO SLEEP.
[2017-02-20 06:26] LABS: BASOPHILS % (AUTO) 0.4 % (0.0-2.0); EOSINOPHILS # (AUTO) 0.2 K/uL (0-0.4); EOSINOPHILS % (AUTO) 2.9 % (0.0-4.0); HEMATOCRIT 24.6 % (36-48); LYMPHOCYTES # (AUTO) 0.8 K/uL (2.5-16.5); LYMPHOCYTES % (AUTO) 12.2 % (20.5-51.1); MEAN CORPUSCULAR HEMOGLOBIN 30 pg (27-31); MEAN CORPUSCULAR HGB CONC 33 g/dL (33-37); MEAN CORPUSCULAR VOLUME 92 fL (80-94); MONOCYTES # (AUTO) 0.9 K/uL (0.8-1.0); MONOCYTES % (AUTO) 12.7 % (1.7-9.3); NEUTROPHILS # (AUTO) 5.1 K/uL (1.8-7.7); NEUTROPHILS % (AUTO) 71.8 % (42.2-75.2); PLATELET COUNT (AUTO) 104 K/uL (140-450); RED BLOOD CELL COUNT(AUTO) 2.67 MIL/uL (4.20-5.40); RED CELL DISTRIBUTION WIDTH 12.9 % (11.6-13.7)
[2017-02-20 06:50] LABS: ANION GAP 10.6 (8-16); CALCIUM 7.6 mg/dL (8.5-10.1); CARBON DIOXIDE 23.4 mmol/L (21-32); CHLORIDE 102 mmol/L (98-107); CREATININE 0.8 mg/dL (0.6-1.3); GLUCOSE 154 mg/dL (74-106); SODIUM SERUM 132 mmol/L (136-145); UREA NITROGEN, BLOOD 26 mg/dL (7-18)
--- NOTE | 2017-02-20 07:00 | NUR ---
CONDITION REMAIN STABLE. ALL NEEDS ATTENDED. WILL ENDORSED TO AM NURSE FOR CONTINUITY OF CARE.
[2017-02-20] MEDS: BLOOD GLUCOSE MONITORING 1 DEV DEV FS SCH ×4 (07:01→21:13)
[2017-02-20] MEDS: INSULIN LISPRO SLIDING SCALE 100 UNITS/ML VIAL SUBQ PRN ×3 (07:04→17:50)
--- NOTE | 2017-02-20 07:05 | NUR ---
RECEIVED PATIENT REPORT FROM NIGHT NURSE AT BEDSIDE. PATIENT IS AAOX3 AND SHOWS NO S/S OF DISTRESS ON 2L O2 NC. PATIENT DENIES PAIN. NOTED CLEAN DRY AND INTACT DRX ON LEFT UPPER THIGH WITH IMMOBILIZER AND SCD'S ON THE RIGHT LEG. INTER DRY DRX APPLIED TO ABD FOLD WITH NOTED DIGITAL CONTENT MANAGER WOUND THAT WILL BE EVALUATED BY WOUND CARE NURSE TODAY. MIMS CATHETER NOTED WITH 1000CC'S OF ORANGE TINGED URINE. IV NOTED ON THE L H SL AND R H WITH IVF'S INFUSING WELL. PATIENT AND SON EDUCATED ON USING THE CALL LIGHT FOR ASSISTANCE, RAPID RESPONSE, AND POC FOR TODAY. PATIENT AND SON VERBALIZED UNDERSTANDING HOWEVER PATIENT NEEDS CONSTANT REINFORCEMENT. PATIENT'S BED IS LOWERED WITH CALL LIGHT WITHIN REACH. WILL CONTINUE TO MONITOR.
[2017-02-20 08:00] VITALS: BP 149/75
--- NOTE | 2017-02-20 09:00 | NUR ---
SPOKE WITH DR TEJEDA REGARDING PLATELET OF 104 AND SODIUM OF 132. NO NEW ORDERS.
[2017-02-20] MEDS: METOPROLOL 25 MG TAB PO SCH (09:35)
--- NOTE | 2017-02-20 09:37 | NUR ---
ADMINISTERED SCHEDULED MEDICATIONS. PATIENT IS SITTING AT BEDSIDE ON CHAIR ASSISTED BY PHYSICAL THERAPY. PATIENT SHOWS NO S/S OF DISTRESS ON 2L O2 NC AND DENIES PAIN. WILL CONTINUE TO MONITOR.
--- NOTE | 2017-02-20 10:58 | NUR ---
SS NOTE: PER BALJIT FROM [facility] ([phone]), PT CAN GO TO ROOM [address] MORAN. PER ROSHNI FROM [facility] ([phone]), PT CAN GO TO ROOM [address]A UNDER DR[address] MORAN. I SPOKE WITH PT'S SON, HARITHA AND INFORMED HIM THAT PT HAS BEEN ACCEPTED AT BOTH INSURANCE CONTRACTED SNFS. HE STATED THAT HE WILL TOUR THE FACILITIES TODAY AND INFORM ME OF HIS CHOICE FOR PT.
[2017-02-20] MEDS: NACL 0.45% 1,000 ML IV SCH (11:10)
--- NOTE | 2017-02-20 11:30 | NUR ---
PATIENT IS SITTING UP AND SHOWS NO S/S OF DISTRESS ON 2L O2 NC. PATIENT DENIES PAIN. PATIENT WAS ASKED IF WOULD LIKE TO EAT HOWEVER SHE SAID SHE HAS NO APPETITE RIGHT NOW. WILL CONTINUE TO MONITOR.
[2017-02-20] MEDS ORDERED: HEPA500055 SUBQ (12:57)
[2017-02-20] MEDS ORDERED: ACET-9529 PO (12:57)
[2017-02-20] MEDS ORDERED: METO25TA PO (12:57)
[2017-02-20] MEDS ORDERED: [UNRECOGNIZED DRUG - CODE] PO (12:57)
[2017-02-20] MEDS ORDERED: ONDA2SOL45 IVP (12:57)
--- NOTE | 2017-02-20 13:45 | NUR ---
PATIENT HAS SON AT BEDSIDE. PATIENT SHOWS NO S/S OF DISTRESS AND DENIES PAIN. WILL CONTINUE TO MONITOR.
--- NOTE | 2017-02-20 14:10 | NUR ---
WOUND CARE EVALUATION NOTES: REASON FOR EVALUATION: WOUND ASSESSMENT COMPLETE SKIN ASSESSMENT DONE ON THIS 71Y/O FEMALE PATIENT FROM HOME TO [facility] ED WITH CHIEF COMPLAIN OF FALL AT HOME WITH LEFT KNEE PAIN AND DIAGNOSIS WITH LEFT FEMUR FRACTURE. PAST MEDICAL HISTORY INCLUDE TYPE 2 DIABETES, ANEMIA, HYPERTENSION AND OBESITY. ALL ABOVE INFORMATION WAS OBTAINED FROM THE ADMISSION H&P. LABS ARE WBC 7.0, H/H 2.67/8.0, GLUCOSE 154, NO ALBUMIN LEVEL, PT/INR 10.8/1.1 AND PTT 27.06. CURRENT MEDS INCLUDE MORPHINE AND INSULIN LISPRO. PATIENT IS AWAKE, ORIENTED TO PERSON, PLACE, DATE AND TIME. SKIN WARM TO TOUCH WNL, TOENAILS ARE LONG AND THICKENED, +1 EDEMA BLE, NO HAIR GROWTH, BLE ARE DRY AND PALPATE BILATERAL PEDAL PULSES. FC PATENT AND INTACT TO YELLOW COLORED URINE IN MODERATE AMOUNT. RIGHT ARM PERIPHERAL IV PATENT AND INTACT. ON ROOM AIR. NEEDS EXTENSIVE ASSISTANCE IN TURNING. INITIAL PLAN OF CARE AND PRESSURE PREVENTIVE MEASURES DISCUSSED, ABLE TO VERBALIZE UNDERSTANDING. INTEGUMENTARY: NASAL BRIDGE DRY SCABS LEFT ELBOW DRY SCABS ABDOMINAL FOLDS - INTERTRIGINOUS DERMATITIS WITH SUPERFICIAL OPEN WOUND. S/P ORIF LEFT FUMER, SURGICAL SITE DRY AND CLEAN, NO REDNESS, NO SWELLING WITH [address] LEFT KNEE DRESSING IN PLACE WITH CHEL BANDAGE AND KNEE IMMOBILIZER RECOMMENDATIONS: -CLEANSE ABDOMINAL FOLDS WITH MILD SOAP AND WATER, PAT DRY, APPLY INTERDRY Q 7 DAYS AND PRN WITH SOILING. CHECK DRESSING PLACEMENT DAILY -CLEANSE LEFT THIGH SURGICAL WOUND WITH NS. PAT DRY, APPLY DRY DRESSING DAILY. FOLLOW UP WITH SURGEON IN 1 WEEK -TURN AND REPOSITION PATIENT Q 2H TO RIGHT SIDE AND BACK, AVOID LEFT SIDE -ASSESS AND MONITOR SKIN CONDITION DURING POSITION CHANGE, PLEASE PAY PARTICULAR ATTENTION TO SACRALCOCCYX, ELBOWS AND HEELS -OFFLOAD BILATERAL HEELS BY PLACING PILLOWS UNDER CALVES AT ALL TIMES, UNLESS OTHERWISE CONTRAINDICATED -PRESSURE REDISTRIBUTION SURFACE THERAPY. BED WITH TRAPEZ FOR BED MOBILITY -KEEP LEFT KNEE IMMOBILIZER IN PLACE, RELEASE AND CHECK SKIN CONDITION, CIRCULATION OR ANY REDNESS AND REAPPLY -KEEP SKIN CLEAN AND DRY AT ALL TIMES. - FOLLOW UP WITH SURGEON IN 1 WEEK RECOMMENDATIONS DISCUSSED WITH PRIMARY RN AND RESIDENT PHYSICIAN, DR. HUGHES WILL FOLLOW UP PATIENT Q7 DAYS AND PRN. PLEASE CONTACT [facility] FOR ANY CONCERNS, QUESTIONS AND CHANGES IN SKIN CONDITION.
--- NOTE | 2017-02-20 14:30 | NUR ---
PATIENT BEING SEEN BY WOUND CARE NURSE. SPOKE WITH DR AWAN AND OKAYED TO CHANGE DRX AND GAVE NEW ORDERS TO TAKE OFF IMMOBILIZER TO CHANGE THE DRX AND APPLY IMMOBILIZER BACK ON.
--- NOTE | 2017-02-20 14:45 | NUR ---
WHILE PERFORMING DRX CHANGED RN AND WOUND CARE NURSE DILMA NOTICED NO ORDERS OR DOCUMENTATION REGARDING DRX ON LEFT KNEE WHILE THE IMMOBILIZER AND CHEL BANDAGE WAS TAKEN OFF. DR AWAN WAS CALLED REGARDING DRX CHANGE FOR KNEE. WILL AWAIT FOR CALL BACK.
--- NOTE | 2017-02-20 14:50 | NUR ---
SS NOTE: MESSAGE LEFT FOR PT'S SON, HARITHA TO FOLLOW UP ON WHETHER HE HAS CHOSEN A SNF FOR PT TO BE TRANSFERRED TO FOR REHAB
[2017-02-20 16:00] VITALS: BP 147/82
--- NOTE | 2017-02-20 16:00 | NUR ---
PATIENT IS IN BED AND SHOWS NO S/S OF DISTRESS ON ROOM AIR. THE BED IS LOWERED WITH CALL LIGHT WITHIN REACH. WILL CONTINUE TO MONITOR.
--- NOTE | 2017-02-20 16:50 | NUR ---
SS NOTE: I SPOKE WITH PT AND PT'S SON, HARITHA BEDSIDE WITH [facility] TO TRANSLATE FOR PT. HARITHA STATED THAT HE WOULD LIKE PT TO GO TO [facility] AND PT WAS IN AGREEMENT WITH GOING THERE UPON DISCHARGE. PER BALJIT FROM [facility] ([phone]), PT WILL NOW BE GOING TO ROOM [address] MORAN. PER ESMER SANCHEZ ([phone]), [facility] IS ON WILL-CALL FOR PT PER LORENA FROM [facility], LISA ACTING INSTRUCTOR TIME WILL BE 2100. INTERNAL AUDIT MANAGER INGRID AWARE.
--- NOTE | 2017-02-20 17:00 | NUR ---
RECEIVED CALL BACK FROM DR LV NIEVES TO REMOVE IMMOBILIZER AND CHANGED DRX DAILY.
--- NOTE | 2017-02-20 17:05 | NUR ---
DR AWAN ALSO STATED TO FOLLOW WITH HIM WITHIN ONE WEEK. PATIENT IS TO ALSO HAVE NO WEIGHT BEARING ON LEFT LEG.
--- NOTE | 2017-02-20 18:00 | NUR ---
PATIENT HAS FAMILY AT BEDSIDE AND SHOWS NO S/S OF DISTRESS ON 2L O2 NC. PATIENT AND FAMILY IS AWARE OF TRANSPORT TO ARRIVE AT 2100 TO GO TO [facility] ROOM 116 BED 2.
--- NOTE | 2017-02-20 19:20 | NUR ---
PATIENT SHOWS NO S/S OF DISTRESS ON 2L O2 VIA NC AND IS AAOX3 AND DENIES PAIN. PATIENT FAMILY AT BEDSIDE. PATIENT REPORT WAS GIVEN AT BEDSIDE TO NIGHT NURSE. PATIENT ENDORSED IN STABLE CONDITION.
--- NOTE | 2017-02-20 19:30 | NUR ---
RECEIVED REPORT FROM DAY RN AT BEDSIDE, PATIENT IS AAOX3 ON O2 2L NC, NO SOB OR SIGN OF DISTRESS AT THIS TIME. PT IS RESTING IN BED, S/P ORIF WITH DRESSING TO LEFT HIP AND IMMOBILIZER TO LEFT LEG WITH CHEL BANDAGE UNDERNEATH, DRY AND INTACT. PATIENT DENIES PAIN AT THIS TIME, MIMS IN PLACE DRAINING URINE TO GRAVITY, IVS TO LEFT AND RIGHT HAND INTACT AND PATENT, PATIENT AWAITING FIRE SPRINKLER DESIGNER FROM [facility]. ETA 2200, CALL LIGHT WITHIN REACH. WILL CONTINUE TO MONITOR.
--- NOTE | 2017-02-20 20:00 | NUR ---
SPOKE WITH NAHUM FROM [facility] [phone] REGARDING PATIENT REPORT. ENDORSED TO NAHUM ABOUT DAILY DRX CHANGES PER DR AWAN. PER DR NIEVES TO REMOVE IMMOBILIZER AND PERFORM DRESSING CHANGE AND TO APPLY IMMOBILIZER BACK ON. ALSO TO FOLLOW UP WITH HIM WITHIN ONE WEEK. PER NAHUM PATIENT TO LEAVE MIMS CATHETER ON IS OKAY. NAHUM VERBALIZED UNDERSTANDING. ALL QUESTIONS WERE ANSWERED. [facility] TO ARRIVE AT 2100.
--- NOTE | 2017-02-20 20:15 | NUR ---
PATIENT DISCHARGE INSTRUCTIONS WERE GIVEN. PATIENT AGREED TO HAVE SON SIGN ALL PAPERWORK. ALL QUESTIONS WERE ANSWERED. ALL BELONGINGS ARE PATIENT'S SON DEISY'S POSSESSION. IV DISCONTINUED ON THE R H AND L H WITH BOTH CANNULAS INTACT. PATIENT REFUSED TO HAVE PHOTOS OF WOUNDS TAKEN. PATIENT ENCOURAGED TO HAVE PICTURES TAKEN TO HAVE DOCUMENTATION; HOWEVER PATIENT CONTINUED TO REFUSE. PATIENT'S SON DEISY IS AWARE. PATIENT IS IN STABLE CONDITION. [facility] IS TO ARRIVE AT 2200 NOW.
--- NOTE | 2017-02-20 22:39 | NUR ---
CALLED [facility] FOR ESTIMATED TIME OF PUMP SERVICE SUPERVISOR FOR PATIENT, STATED THEY WILL ARRIVE SOON AND HAVE THE PATIENT TO [facility] BEFORE MIDNIGHT.
--- NOTE | 2017-02-20 23:00 | NUR ---
CALLED [facility] THAT PATIENT IS STILL COMING AND WE ARE AWAITING PICKUP FROM [facility].
--- NOTE | 2017-02-21 00:07 | NUR ---
PT WAS PICKED UP BY , BELONGINGS WITH PATIENT, PATIENT IN STABLE CONDITION, WRIST BANDS REMOVED
== END 2017-02-20 23:55 | DRG 481 ==
LOC: MED 19:09 → MTU 02-16 00:29
PROVIDERS: ADMIT Hospitalist; ATTEND Hospitalist
PROC: 30233N1 Transfusion of Nonautologous Red Blood Cells into Peripheral Vein, Percutaneous Approach (ICD-10-PCS; 2017-02-18)
PROC: 0QSC04Z Reposition Left Lower Femur with Internal Fixation Device, Open Approach (ICD-10-PCS; principal; 2017-02-19)
DX: S72.452A Displaced supracondylar fracture without intracondylar extension of lower end of left femur, initial encounter for closed fracture (principal); N17.9 Acute kidney failure, unspecified; E11.9 Type 2 diabetes mellitus without complications; E66.9 Obesity, unspecified; S01.112A Laceration without foreign body of left eyelid and periocular area, initial encounter; S01.21XA Laceration without foreign body of nose, initial encounter; D64.9 Anemia, unspecified; M19.90 Unspecified osteoarthritis, unspecified site; W01.0XXA Fall on same level from slipping, tripping and stumbling without subsequent striking against object, initial encounter; Y93.89 Activity, other specified; Y92.89 Other specified places as the place of occurrence of the external cause; Z68.31 Body mass index [BMI] 31.0-31.9, adult; Y99.8 Other external cause status
CPT/HCPCS: 36415; 70450; 70480; 71010; 73560; 80048; 80053; 81001; 82948; 84484; 85018; 85025; 85610; 85730; 86886; 86900; 86901; 86920; 87077; 87081; 87086; 87186; 93005; 97110; 97140; 97530; 99285; C1713; J0690; J1644; J1650; J1815; J2270; J2704; J3010; J3490; J7030; J7060; P9016; Q0092